=== PATIENT | female | born 1955 ===

== ENCOUNTER 2023-06-12 11:17 | Outpatient (REF) | payer OTHER, SELFPAY ==
--- NOTE | 2023-06-12 10:00 | PAPFT_PTH ---
PATIENT: Chrissie Zelaya LOC: [facility] U#:[id number] AGE/SX: 68/F ROOM: RE06/12/[address]: Loree Anderson : 1955 BED: DIS: 06/12/2023 SPEC #: [id number] RECD: 06/12/23 16:28 STATUS: TEE HOBSON #: [id number] AZIZA: 06/12/23 10:[address]: Loree Anderson DEPT: [facility] Cytology RECD BY: Mitali Hayes Tissues: 1 - CX/ENDOCX FOR PAP SMEARS Procedures: PAP THIN PREP/[facility] Screening HPV DNA PROBE Comments: [id number]
== END 2023-06-12 11:18 | disposition home or self-care (01) ==
LOC: LBN 11:17
PROVIDERS: PCP Internal Medicine; Visit Provider Internal Medicine
DX: Z11.51 Encounter for screening for human papillomavirus (HPV); Z12.4 Encounter for screening for malignant neoplasm of cervix
CPT/HCPCS: 88142; 87624

== ENCOUNTER 2024-04-15 14:25 | Outpatient (REF) | payer OTHER, SELFPAY ==
[2024-04-15 21:28] LABS: HCT 41.3 % (36.0-46.0); HGB 14.1 g/dL (11.2-15.7); MCH 34.1 pg (27.0-33.0); MCHC 34.1 % (32.0-36.0); MCV 100 fL (80-95); MPV 9.9 fL (8.0-11.0); Platelet Count 313 10^3/uL (130-400); RBC 4.13 10^6/uL (3.93-5.22); RDW 13.2 % (11.7-14.6); RDW-SD 49.1 fL; WBC 7.86 10^3/uL (4.4-10.8)
[2024-04-15 21:46] LABS: ALT 30 U/L (14-59); AST 21 U/L (15-37); Albumin 4.1 g/dL (3.4-5.0); Alkaline Phosphatase 31 U/L (46-116); Anion Gap 8.2 mmol/L (3-11); BUN 24 mg/dL (7-18); Bilirubin, Total 0.51 mg/dL (0.2-1.0); CO2 28.8 mmol/L (21.0-32.0); CREATININE 0.7 mg/dL (0.55-1.02); Calcium 8.9 mg/dL (8.5-10.1); Calculated LDL 176 mg/dL (<100); Chloride 105 mmol/L (98-107); Cholesterol 299 mg/dL (<200); Estimated GFR 94.73 (mL/min/1.73m2); Glucose 102 mg/dL (74-106); HDL Cholesterol 114 mg/dL (40-60); Potassium 3.8 mmol/L (3.5-5.1); Sodium 142 mmol/L (136-145); TSH 1.19 uIU/Ml (0.36-3.74); Total Protein 7.5 g/dL (6.4-8.2); Triglyceride 48 mg/dL (<150)
== END 2024-04-15 14:26 | disposition home or self-care (01) ==
LOC: NCHCN 14:25
PROVIDERS: PCP Internal Medicine; Visit Provider Internal Medicine
DX: E78.5 Hyperlipidemia, unspecified (principal); R53.83 Other fatigue
CPT/HCPCS: 80053; 80061; 85027; 84443